=== PATIENT | female | born 1985 | race Caucasian/White ===

== ENCOUNTER 2016-12-30 07:42 | Emergency (ER) | payer OTHER ==
[2016-12-30] MEDS ORDERED: HYDROMORPHONE HCL 0.5 MG/0.5 ML SYRINGE ONE (08:00)
[2016-12-30] MEDS ORDERED: LACTATED RINGERS 1,000 ML ONE ×2 (08:00→09:33)
[2016-12-30] MEDS ORDERED: ONDANSETRON 4 MG/2ML 2 ML VIAL ONE ×2 (08:02→09:19)
[2016-12-30 08:15] LABS: ABSOLUTE NEUTROPHIL COUNT 3.6 K/mm3 (1.8-7.7); BASO % 0.6 % (0.2-1.0); EOS # 0.1 (0.0-0.5); EOS % 1.1 % (0.9-2.9); HEMATOCRIT 40.8 % (37.0-47.0); HEMOGLOBIN 13.6 gm/l (12.0-16.0); IMM NEUT% 0.2 % (0-1); LYMPH # 1.4 (1.0-4.8); LYMPH % 25.5 % (15-45); MEAN CELL VOLUME 91.1 fl (81.0-99.0); MEAN CORPUSCULAR HEMOGLOBIN 30.4 pg (27.0-31.0); MEAN CORPUSCULAR HGB CONC 33.3 g/dl (33.0-37.0); MEAN PLATELET VOLUME 10.6 fl (7.4-10.4); MONO # 0.3 (0.0-0.8); NEUT % 66.6 % (43-75); PLATELET COUNT 245 K/mm3 (130-400); RED CELL DISTRIBUTION WIDTH 11.1 % (11.5-14.5)
[2016-12-30 08:34] LABS: INR 1.13; PARTIAL THROMBOPLASTIN TIME 26.3 SECONDS (24.5-33.0)
[2016-12-30 08:38] LABS: CALCIUM 9.6 mg/dL (8.6-10.3)
[2016-12-30] MEDS ORDERED: EPIDURAL PROCEDURE TRAY ONE (09:19)
[2016-12-30] MEDS ORDERED: FENTANYL 5 ML ONE (09:19)
== END 2016-12-30 11:05 | disposition home or self-care (01) ==
LOC: ED 07:42
DX: G97.1 Other reaction to spinal and lumbar puncture (principal); Y84.4 Aspiration of fluid as the cause of abnormal reaction of the patient, or of later complication, without mention of misadventure at the time of the procedure; Y92.9 Unspecified place or not applicable
CPT/HCPCS: 85025; 80048; 85730; 85610; 96375; 99284; 96374; 99283; J3010; J2405 ×2; J7120 ×2; J1170

== ENCOUNTER 2017-01-01 16:50 | Emergency (ER) | payer OTHER ==
[2017-01-01] MEDS ORDERED: ONDANSETRON 4 MG ODT TAB ONE (18:10)
== END 2017-01-01 18:23 | disposition home or self-care (01) ==
LOC: ED 16:50
DX: R20.2 Paresthesia of skin (principal); G35 Multiple sclerosis
CPT/HCPCS: 99283 ×2; A9270